=== PATIENT | female | born 2000 | race Two or more races ===

== ENCOUNTER 2019-09-05 09:41 | Emergency (ER) | payer MEDICAID ==
[~2019-09-05] VITALS: Ht 165.1 cm; Wt 74.4 kg
--- NOTE | 2019-09-05 09:56 | NUR ---
ED Nurse Note: Pt walked into ED w/ c/o runny nose and nausea since last night. Pt also states she chest pressure, but no pain. Pt is alert and orientedx4, ambulatory. Pt denies fever, chills, body aches, vomiting. Pt has not been outside [place] in past month.
[2019-09-05 09:59] VITALS: BP 110/65
--- NOTE | 2019-09-05 10:02 | Emergency Room Report ---
History of Present Illness General Chief Complaint: Upper Respiratory Illness Source: Patient Present Illness HPI This patient states that she has had persistent chest pain that feels pressure- like since before bed last night. She states the symptoms have been persistent for greater than 12 hours. She denies fever. She denies cough or congestion. She denies sore throat. She denies headache or neck pain. She denies rhinorrhea. She denies blurry vision. She denies abdominal pain. She denies nausea or vomiting. She has no other complaints. COVID-19 risk:Travel to affect: No Has patient experienced gill: No Coronavirus symptoms experienc: Runny Nose, Flu-Like Symptoms Allergies: Coded Allergies: No Known Allergies (Unverified , 09/05/19) Patient History Past Medical History: none, see triage record, other - S.tachycardia Social History: Denies: smoking, alcohol use, drug use Now: No Reviewed Nursing Documentation: PMH: Agreed; PSxH: Agreed Nursing Documentation-PMH Past Medical History: No Stated History Review of Systems All Other Systems: negative except mentioned in HPI Physical Exam Vital Signs Date Time Temp Pulse Resp B/P (MAP) Pulse Ox O2 Delivery O2 Flow Rate FiO2 09/05/19 09:44 98.2 78 18 112/71 (85) 98 Room Air 09/05/19 09:59 99 Sp02 EP Interpretation: reviewed, normal General Appearance: no apparent distress, alert, GCS 15, non-toxic Head: normocephalic, atraumatic Eyes: bilateral eye normal inspection, bilateral eye PERRL ENT: hearing grossly normal, normal pharynx, no angioedema, normal voice Neck: full range of motion, supple/symm/no masses Respiratory: chest non-tender, lungs clear, normal breath sounds, no respiratory distress, no retraction, no accessory muscle use, speaking full sentences Cardiovascular #1: regular rate, rhythm, no edema Gastrointestinal: normal bowel sounds, non tender, soft, non-distended, no guarding, no rebound Rectal: deferred Musculoskeletal: normal inspection, normal range of motion, gait/station normal , non-tender Neurologic: alert, motor strength/tone normal, oriented x3, sensory intact, responsive, speech normal Psychiatric: judgement/insight normal, memory normal, mood/affect normal, no suicidal/homicidal ideation Skin: no rash, normal color Medical Decision Making Diagnostic Impression: Primary Impression: Chest pain ER Course The patient is low risk chest pain. I considered PE, PTX, acute coronary syndrome, aortic dissection, pneumonia which is unlikely given hx, CE, CXR. Low risk PERC and Wells. Negative work-up to include Cardiac enzymes, CXR, EKG. Given history and PE I do not feel that this patient needs further evaluation at this time. The patient was instructed to follow-up closely with their PCP and close return precautions were given. Of note, this patient presents during a pandemic and there have been variable presentations of COVID- 19, so I cannot say whether this is an atypical presentation, regardless, the patient is well-appearing and nontoxic without even symptoms of URI. At this time per CDC and Department of Health recommendations she does not meet criteria for screening for COVID-19. Further this is a small [facility] and is unable to screen well-appearing persons secondary to inability to take on well patient surge. The patient was educated to follow-up with her primary care physician. Laboratory Tests Test 09/05/19 11:00 White Blood Count 5.9 K/UL (4.8-10.8) Red Blood Count 4.62 M/UL (4.20-5.40) Hemoglobin 12.3 G/DL (12.0-16.0) Hematocrit 37.6 % (37.0-47.0) Mean Corpuscular Volume 81 FL (80-99) Mean Corpuscular Hemoglobin 26.7 PG (27.0-31.0) L Mean Corpuscular Hemoglobin Concent 32.8 G/DL (32.0-36.0) Red Cell Distribution Width 13.5 % (11.6-14.8) Platelet Count 306 K/UL (150-450) Mean Platelet Volume 6.6 FL (6.5-10.1) Neutrophils (%) (Auto) 64.7 % (45.0-75.0) Lymphocytes (%) (Auto) 27.0 % (20.0-45.0) Monocytes (%) (Auto) 3.7 % (1.0-10.0) Eosinophils (%) (Auto) 3.6 % (0.0-3.0) H Basophils (%) (Auto) 1.0 % (0.0-2.0) Sodium Level 137 MMOL/L (136-145) Potassium Level 4.0 MMOL/L (3.5-5.1) Chloride Level 104 MMOL/L (98-107) Carbon Dioxide Level 26 MMOL/L (21-32) Anion Gap 7 mmol/L (5-15) Blood Urea Nitrogen 10 mg/dL (7-18) Creatinine 0.9 MG/DL (0.55-1.30) Estimated Glomerular Filtration Rate > 60 mL/min (>60) Glucose Level 89 MG/DL (74-106) Calcium Level 9.3 MG/DL (8.5-10.1) Total Bilirubin 0.3 MG/DL (0.2-1.0) Aspartate Amino Transferase (AST) 30 U/L (15-37) Alanine Aminotransferase (ALT) 51 U/L (12-78) Alkaline Phosphatase 122 U/L (46-116) H Troponin I 0.000 ng/mL (0.000-0.056) Total Protein 8.0 G/DL (6.4-8.2) Albumin 3.9 G/DL (3.4-5.0) Globulin 4.1 g/dL Albumin/Globulin Ratio 1.0 (1.0-2.7) Microbiology Date/Time Source Procedure Growth Status 09/05/19 10:12 Nasal Nares - Final Complete 09/05/19 10:12 Nasal Nares - Final Complete EKG Diagnostic Results Rate: normal Rhythm: NSR ST Segments: no acute changes Rhythm Strip Diag. Results EP Interpretation: yes Rate: 80's Rhythm: NSR, no PVC's, no ectopy Chest X-Ray Diagnostic Results Chest X-Ray Diagnostic Results : Chest X-Ray Ordered: Yes # of Views/Limited/Complete: 1 View Indication: Chest Pain EP Interpretation: Yes Interpretation: no consolidation, no effusion, no pneumothorax, no acute cardiopulmonary disease Impression: No acute disease Electronically Signed by: Kusum Hurd DO Last Vital Signs Date Time Temp Pulse Resp B/P (MAP) Pulse Ox O2 Delivery O2 Flow Rate FiO2 09/05/19 09:59 81 20 Room Air 99 09/05/19 09:59 98.2 110/65 100 Status: improved Disposition: HOME, SELF-CARE Condition: Improved Referrals: NOT CHOSEN IPA/,REFERRING (PCP) Kusum Hurd DO Sep 05, 2019 10:02
[2019-09-05 11:23] LABS: EOSINOPHILS % (AUTO) 3.6 % (0.0-3.0); HEMATOCRIT 37.6 % (37.0-47.0); HEMOGLOBIN 12.3 G/DL (12.0-16.0); MEAN CORPUSCULAR VOLUME 81 FL (80-99); MONOCYTES % (AUTO) 3.7 % (1.0-10.0); NEUTROPHILS % (AUTO) 64.7 % (45.0-75.0); PLATELET COUNT 306 K/UL (150-450); RED BLOOD COUNT 4.62 M/UL (4.20-5.40); RED CELL DISTRIBUTION WIDTH 13.5 % (11.6-14.8); WHITE BLOOD COUNT 5.9 K/UL (4.8-10.8)
[2019-09-05 11:32] LABS: ANION GAP 7 mmol/L (5-15); BLOOD UREA NITROGEN 10 mg/dL (7-18); CALCIUM 9.3 MG/DL (8.5-10.1); CARBON DIOXIDE 26 MMOL/L (21-32); CHLORIDE 104 MMOL/L (98-107); CREATININE 0.9 MG/DL (0.55-1.30); SODIUM 137 MMOL/L (136-145)
[2019-09-05 11:37] LABS: ALANINE AMINOTRANSFERASE 51 U/L (12-78); ALBUMIN 3.9 G/DL (3.4-5.0); ALKALINE PHOSPHATASE 122 U/L (46-116); ASPARTATE AMINO TRANSFERASE 30 U/L (15-37); BILIRUBIN,TOTAL 0.3 MG/DL (0.2-1.0)
--- NOTE | 2019-09-05 12:29 | Diagnostic Imaging Report ---
Indication: Dyspnea Comparison: None A single view chest radiograph was obtained. Findings: Cardiomediastinal appearance is within normal limits for age. The lungs are clear. Pulmonary vascularity is appropriate. The diaphragmatic contour is smooth and costophrenic angles are sharp. No pleural effusions are identified. The bones are unremarkable. Impression: No acute findings
[2019-09-05 12:48] VITALS: BP 120/80
--- NOTE | 2019-09-05 12:49 | NUR ---
discharged home with instruction to follow up with pmd
== END 2019-09-05 12:50 | disposition home or self-care (01) ==
LOC: EMR 09:57
DX: R07.9 Chest pain, unspecified (principal)
CPT/HCPCS: 36415; 71045; 80053; 84484; 85025; 86710; 93005; Z7502; 99283